=== PATIENT | male | born 1985 | race Caucasian/White ===

== ENCOUNTER 2019-11-08 03:36 | Observation (INO) | payer BC ==
[2019-11-08] MEDS ORDERED: Ziprasidone Mesylate 20 MG Vial IM ONE (03:45)
[2019-11-08] MEDS ORDERED: Water For Injection, Sterile 20 ML SDV INJECT ONE (03:45)
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
[2019-11-08] MEDS ORDERED: fentaNYL 50 MCG/ML SDV IVPUSH ONE ×2 (04:01→04:34)
[2019-11-08] MEDS ORDERED: Diphtheria,Pertussis(Acell),Tetanus Vaccine 0.5 ML Syringe IM ONE (04:01)
[2019-11-08] MEDS ORDERED: Acetaminophen/oxyCODONE 325-5 MG Tab PO PRN (04:04)
[2019-11-08 04:11] LABS: BLOOD UREA NITROGEN,BUN 13 mg/dL (7.0-18.0); CARBON DIOXIDE,CO2 29.2 mmol/L (21.0-32.0); CHLORIDE,CL 110 mmol/L (98-107); GLUCOSE RANDOM 146 mg/dL (74-106); POTASSIUM,K 3.9 mmol/L (3.5-5.1); SODIUM,NA 148 mmol/L (136-148)
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
[2019-11-08] MEDS ORDERED: Sodium Chloride 0.9% 1,000 ML IV SCH (04:15)
[2019-11-08] MEDS ORDERED: Lactated Ringers 1,000 ML IV SCH (04:15)
[2019-11-08] MEDS ORDERED: fentaNYL 100 MCG/2 ML SDV ONE (04:36)
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
[2019-11-08] MEDS ORDERED: Ketorolac 15 MG/ML SDV IVPUSH PRN (10:38)
--- NOTE | 2019-11-08 12:52 | CR ---
Chest: 2 views of the chest were obtained. Comparison: Prior chest x-ray performed earlier on the same day. Heart size and mediastinum are normal. Small apical pneumothorax is noted. This appears stable from previous exam. Lungs are clear. No bony abnormality is seen. Impression: 1. Small stable apical pneumothorax. If patient remains stable clinical condition, recommend repeat chest x-ray in 24 hours. 2. 2 view chest x-ray is otherwise unremarkable. Diagnostic code #3 This report was dictated in [place] Standard Time
== END 2019-11-08 14:10 | disposition home or self-care (01) ==
LOC: MW.ED 03:36 → MW.MS 04:01
PROVIDERS: ADMIT Surgery; ATTEND Surgery
DX: S21.112A Laceration without foreign body of left front wall of thorax without penetration into thoracic cavity, initial encounter (principal); R41.82 Altered mental status, unspecified; F10.129 Alcohol abuse with intoxication, unspecified; X99.9XXA Assault by unspecified sharp object, initial encounter; Y92.009 Unspecified place in unspecified non-institutional (private) residence as the place of occurrence of the external cause
CPT/HCPCS: 36415; 71045; 71046; 80053; 80305; 80320; 85025; 90471; 90715; 96372; 96374; 96375; 96376; 99285; A9270; G0378; J1885; J3010; J3486; J7120; 99291; G0480